=== PATIENT | male | born 1950 | race Caucasian/White ===

== ENCOUNTER 2020-07-06 11:17 | Emergency (ER) | payer OTHER ==
[2020-07-06] MEDS ORDERED: Sodium Chloride 0.9% 1,000 ML IV STA (11:57)
[2020-07-06] MEDS ORDERED: Sodium Chloride 0.9% 10 ML Syringe FLUSH PRN (11:57)
[2020-07-06] MEDS ORDERED: fentaNYL 100 MCG/2 ML SDV IVPUSH ONE (11:59)
--- NOTE | 2020-07-06 12:00 | EDM.PDOC ---
ED HPI GENERAL MEDICAL PROBLEM - General Chief Complaint: Abdominal Pain Stated Complaint: CHEST PAIN Time Seen by Provider: 07/06/20 11:53 Source of Information: Reports: Patient, Family, RN Notes Reviewed History Limitations: Reports: No Limitations - History of Present Illness INITIAL COMMENTS - FREE TEXT/NARRATIVE: 70-year-old gentleman presents emergency department a complaint of abdominal pain, he states he has had abdominal pain for about a week but it is progressively gotten worse over the last 24 hours no nausea vomiting states he has okay abdominal movements no fevers no shortness of breath - Related Data Allergies Allergy/AdvReac Type Severity Reaction Status Date / Time codeine AdvReac Nausea and Verified 07/06/20 12:05 Vomiting tetracycline AdvReac Hives Verified 07/06/20 11:31 Home Meds: Home Meds Aspirin [Halfprin] 81 mg PO DAILY 07/06/20 [History] Calcium Carbonate [Calcium] 600 mg PO DAILY 07/06/20 [History] Glucosamine [Glucosamine Sulfate] 500 mg PO DAILY 07/06/20 [History] Hydroxychloroquine [Plaquenil] 200 mg PO BID 07/06/20 [History] Levothyroxine Sodium [Synthroid] 75 mcg PO ACBREAKFAST 07/06/20 [History] Mirtazapine 30 mg PO DAILY 07/06/20 [History] Omeprazole 20 mg PO DAILY 07/06/20 [History] Oxybutynin Chloride 5 mg PO BID 07/06/20 [History] PARoxetine [Paxil] 20 mg PO DAILY 07/06/20 [History] Salsalate 1,500 mg PO BID 07/06/20 [History] Terazosin HCl [Terazosin] 5 mg PO DAILY 07/06/20 [History] predniSONE [Prednisone] 5 mg PO DAILY 07/06/20 [History] Past Medical History HEENT History: Reports: Impaired Vision Musculoskeletal History: Reports: RA Psychiatric History: Reports: Anxiety, Depression, Panic Attack, PTSD Endocrine/Metabolic History: Reports: Hypothyroidism, Obesity/BMI 30+ - Infectious Disease History Infectious Disease History: Reports: Chicken Pox, Hepatitis C, Measles, Mumps, Novel Coronavirus, Shingles - Past Surgical History Head Surgeries/Procedures: Reports: None HEENT Surgical History: Reports: None Respiratory Surgical History: Reports: None GI Surgical History: Reports: Appendectomy, Cholecystectomy Endocrine Surgical History: Reports: None Musculoskeletal Surgical History: Reports: Shoulder Replacement, Other (See Below) Other Musculoskeletal Surgeries/Procedures:: right shoulder, bilat wrists Dermatological Surgical History: Reports: None Social & Family History - Tobacco Use Tobacco Use Status *Q: Former Tobacco User Used Tobacco, but Quit: Yes Month/Year Tobacco Last Used: 1997 - Caffeine Use Caffeine Use: Reports: Coffee - Recreational Drug Use Recreational Drug Use: No ED ROS GENERAL - Review of Systems Review Of Systems: See Below Constitutional: Denies: Fever, Chills HEENT: Reports: No Symptoms Respiratory: Reports: No Symptoms Cardiovascular: Reports: No Symptoms GI/Abdominal: Reports: Abdominal Pain, Flatus. Denies: Constipation, Diarrhea, Nausea, Vomiting : Reports: No Symptoms ED EXAM, GI/ABD - Physical Exam Exam: See Below Exam Limited By: No Limitations General Appearance: Alert, WD/WN, No Apparent Distress Respiratory/Chest: No Respiratory Distress, Lungs Clear, Normal Breath Sounds, No Accessory Muscle Use, Chest Non-Tender Cardiovascular: Regular Rate, Rhythm, No Murmur GI/Abdominal Exam: Normal Bowel Sounds, Soft, Tender (Left upper quadrant) Course - Vital Signs Last Recorded V/S: Last Vital Signs Temp 99.2 F 07/06/20 11:41 Pulse 80 07/06/20 11:57 Resp 14 07/06/20 11:57 BP 144/81 H 07/06/20 11:57 Pulse Ox 99 07/06/20 11:57 - Orders/Labs/Meds Orders: Active Orders 24 hr Category Date Time Status Peripheral IV Care [RC] . DIRECTED Care 07/06/20 11:58 Active Sodium Chloride 0.9% [Saline Flush] Med 07/06/20 11:57 Active 10 ml FLUSH ASDIRECTED PRN Peripheral IV Insertion Adult [OM.PC] Urgent Oth 07/06/20 11:57 Ordered Medication Orders Sodium Chloride (Saline Flush) 10 ml FLUSH ASDIRECTED PRN PRN Reason: Keep Vein Open Labs: Laboratory Tests 07/06/20 07/06/20 07/06/20 Range/Units 12:08 12:08 12:08 WBC 5.1 (4.5-11.0) K/uL RBC 3.99 L (4.30-5.90) M/uL Hgb 13.1 (12.0-15.0) g/dL Hct 39.1 L (40.0-54.0) % MCV 98 (80-98) fL MCH 33 H (27-31) pg MCHC 34 (32-36) % Plt Count 135 L (150-400) K/uL Neut % (Auto) 83 H (36-66) % Lymph % (Auto) 9 L (24-44) % Butler % (Auto) 7 H (2-6) % Eos % (Auto) 0 L (2-4) % Baso % (Auto) 0 (0-1) % Sodium 140 (140-148) mmol/L Potassium 4.0 (3.6-5.2) mmol/L Chloride 104 (100-108) mmol/L Carbon Dioxide 27 (21-32) mmol/L Anion Gap 8.9 (5.0-14.0) mmol/L BUN 27 H (7-18) mg/dL Creatinine 1.4 H (0.8-1.3) mg/dL Est Cr Clr Drug Dosing 44.94 mL/min Estimated GFR (MDRD) 50 L (>60) Glucose 82 (74-106) mg/dL Lactic Acid 0.8 (0.4-2.0) mmol/L Calcium 8.9 (8.5-10.1) mg/dL Total Bilirubin 0.3 (0.2-1.0) mg/dL AST 41 H (15-37) U/L ALT 42 (12-78) U/L Alkaline Phosphatase 60 (46-116) U/L Troponin I < 0.017 (0.000-0.056) ng/mL Total Protein 7.2 (6.4-8.2) g/dL Albumin 3.6 (3.4-5.0) g/dL Globulin 3.6 H (2.3-3.5) g/dL Albumin/Globulin Ratio 1.0 L (1.2-2.2) Lipase 66 L (73-393) U/L Urine Color (YELLOW) Urine Appearance (CLEAR) Urine pH (5.0-8.0) Ur Specific [place] (1.008-1.030) Urine Protein (NEGATIVE) mg/dL Urine Glucose (UA) (NEGATIVE) mg/dL Urine Ketones (NEGATIVE) mg/dL Urine Occult Blood (NEGATIVE) Urine Nitrite (NEGATIVE) Urine Bilirubin (NEGATIVE) Urine Urobilinogen (0.2-1.0) EU/dL Ur Leukocyte Esterase (NEGATIVE) Urine RBC (0-5) Urine WBC (0-5) Ur Epithelial Cells Amorphous Sediment Urine Bacteria Urine Mucus 07/06/20 Range/Units 12:29 WBC (4.5-11.0) K/uL RBC (4.30-5.90) M/uL Hgb (12.0-15.0) g/dL Hct (40.0-54.0) % MCV (80-98) fL MCH (27-31) pg MCHC (32-36) % Plt Count (150-400) K/uL Neut % (Auto) (36-66) % Lymph % (Auto) (24-44) % Butler % (Auto) (2-6) % Eos % (Auto) (2-4) % Baso % (Auto) (0-1) % Sodium (140-148) mmol/L Potassium (3.6-5.2) mmol/L Chloride (100-108) mmol/L Carbon Dioxide (21-32) mmol/L Anion Gap (5.0-14.0) mmol/L BUN (7-18) mg/dL Creatinine (0.8-1.3) mg/dL Est Cr Clr Drug Dosing mL/min Estimated GFR (MDRD) (>60) Glucose (74-106) mg/dL Lactic Acid (0.4-2.0) mmol/L Calcium (8.5-10.1) mg/dL Total Bilirubin (0.2-1.0) mg/dL AST (15-37) U/L ALT (12-78) U/L Alkaline Phosphatase (46-116) U/L Troponin I (0.000-0.056) ng/mL Total Protein (6.4-8.2) g/dL Albumin (3.4-5.0) g/dL Globulin (2.3-3.5) g/dL Albumin/Globulin Ratio (1.2-2.2) Lipase (73-393) U/L Urine Color Yellow (YELLOW) Urine Appearance Clear (CLEAR) Urine pH 5.5 (5.0-8.0) Ur Specific [place] >= 1.030 (1.008-1.030) Urine Protein Negative (NEGATIVE) mg/dL Urine Glucose (UA) Negative (NEGATIVE) mg/dL Urine Ketones Negative (NEGATIVE) mg/dL Urine Occult Blood Negative (NEGATIVE) Urine Nitrite Negative (NEGATIVE) Urine Bilirubin Negative (NEGATIVE) Urine Urobilinogen 1.0 (0.2-1.0) EU/dL Ur Leukocyte Esterase Negative (NEGATIVE) Urine RBC Not seen (0-5) Urine WBC Not seen (0-5) Ur Epithelial Cells Not seen Amorphous Sediment Not seen Urine Bacteria Rare Urine Mucus Rare Meds: Medications Generic Name Dose Route Start Last Admin Trade Name Freq PRN Reason Stop Dose Admin Sodium Chloride 10 ml 07/06/20 11:57 Saline Flush FLUSH ASDIRECTED PRN Keep Vein Open Discontinued Medications Generic Name Dose Route Start Last Admin Trade Name Freq PRN Reason Stop Dose Admin Fentanyl 50 mcg 07/06/20 11:59 07/06/20 12:18 Sublimaze IVPUSH 07/06/20 12:00 50 mcg ONETIME ONE Administration Sodium Chloride 1,000 mls @ 999 mls/hr 07/06/20 11:57 07/06/20 12:21 Normal Saline IV 07/06/20 12:57 999 mls/hr .BOLUS STA Administration Sodium Chloride 80 mls @ 3.5 mls/sec 07/06/20 12:15 07/06/20 12:43 Normal Saline IV 07/06/20 12:16 3.5 mls/sec ASDIRECTED LOIS Administration Iopamidol 129 ml 07/06/20 12:01 07/06/20 12:42 Isovue-300 (61%) IV 07/06/20 12:02 129 ml ONETIME ONE Administration Sodium Chloride 10 ml 07/06/20 12:01 07/06/20 12:42 Saline Flush FLUSH 07/06/20 12:02 10 ml ONETIME ONE Administration Departure - Departure Time of Disposition: 13:20 Disposition: Home, Self-Care 01 Condition: Fair Clinical Impression: Abdominal pain Qualifiers: Abdominal location: left upper quadrant Qualified Code(s): R10.12 - Left upper quadrant pain - Discharge Information Instructions: Abdominal Pain, Adult, [id number] Referrals: Charity Ariza DIESEL TECHNICIAN [Primary Care Provider] - Forms: ED Department Discharge Additional Instructions: Continue to use ibuprofen for baseline pain control use hydrocodone for breakthrough pain, please followup with your primary care provider in 3-5 days if not better, please call return to the emergency department with worsening of symptoms. Sepsis Event Note (ED) - Evaluation Sepsis Screening Result: No Definite Risk - Focused Exam Vital Signs: Vital Signs Temp Pulse Resp BP Pulse Ox 07/06/20 11:57 80 14 144/81 H 99 07/06/20 11:41 99.2 F 81 18 142/81 H 100 07/06/20 11:35 99.2 F 81 18 142/81 H 100 - My Orders Last 24 Hours: My Active Orders 07/06/20 11:57 Sodium Chloride 0.9% [Saline Flush] 10 ml FLUSH ASDIRECTED PRN Peripheral IV Insertion Adult [OM.PC] Urgent 07/06/20 11:58 Peripheral IV Care [RC] . DIRECTED - Assessment/Plan Last 24 Hours: My Active Orders 07/06/20 11:57 Sodium Chloride 0.9% [Saline Flush] 10 ml FLUSH ASDIRECTED PRN Peripheral IV Insertion Adult [OM.PC] Urgent 07/06/20 11:58 Peripheral IV Care [RC] . DIRECTED Plan: Assessment Acuity = acute Site and laterality = abdominal pain Etiology = unknown Manifestations = none Location of injury = Home Lab values = CBC, CMP, urinalysis, CT scan showed no acute process lactic acid within normal limits Plan I did review CT scan lab results with him prescription written for hydrocodone 5/325 1 tab p.o. 3 times daily as needed total #10 provided pain control and follow-up with his primary care next week for further evaluation This note was dictated using [employer] voice recognition software please call with any questions on syntax or grammar.
[2020-07-06] MEDS ORDERED: Iopamidol 612 MG/ML 500 ML Multipack Bottle IV ONE (12:01)
[2020-07-06] MEDS ORDERED: Sodium Chloride 0.9% 10 ML Syringe FLUSH ONE (12:01)
[2020-07-06] MEDS ORDERED: Sodium Chloride 0.9% 80 ML IV SCH (12:15)
--- NOTE | 2020-07-06 13:10 | CRLCT ---
Indication: Left upper quadrant pain. Technique: Multiple contiguous axial images were obtained from the lung bases since this pubis after the intravenous administration of 129 milliliters Isovue 300. Please note that all CT scans at this facility use dose modulation, iterative reconstruction, and/or weight-based dosing when appropriate to reduce radiation dose to as low as reasonably achievable. Comparison: None Findings: The lung bases are clear. The heart is normal in size. No pericardial effusions identified. Postsurgical changes of cholecystectomy are identified. A right renal cyst is identified. No intrahepatic biliary ductal dilatation is identified. The spleen, liver, pancreas, adrenals, and kidneys are normal. No intrahepatic biliary ductal dilatation is identified. No hydronephrosis is identified. In the pelvis, the urinary bladder is normal. The prostate gland is normal. Prostatic calcifications are identified. The small and large bowel are normal in caliber. No free air or free fluid is identified within the abdomen or pelvis. The aorta is normal in caliber. Degenerative changes of the spine are identified. No lytic or blastic lesions are identified. Impression: Essentially normal CT scan of the abdomen and pelvis. No findings to account for the patient`s left upper quadrant pain. Right renal cyst. Postsurgical changes of cholecystectomy. Please note that all CT scans at this facility use dose modulation, iterative reconstruction, and/or weight-based dosing when appropriate to reduce radiation dose to as low as reasonably achievable. Dictated by Kanika Gil MD @ Jul 06 2020 1:04PM Signed by Dr. Kanika Gil @ Jul 06 2020 1:08PM
== END 2020-07-06 13:31 | disposition home or self-care (01) ==
LOC: JP.ED 11:17
DX: R10.12 Left upper quadrant pain (principal); M06.9 Rheumatoid arthritis, unspecified; E03.9 Hypothyroidism, unspecified; E66.9 Obesity, unspecified; Z88.5 Allergy status to narcotic agent; Z88.1 Allergy status to other antibiotic agents; Z79.82 Long term (current) use of aspirin; Z79.899 Other long term (current) drug therapy; Z87.891 Personal history of nicotine dependence
CPT/HCPCS: 36415; 74177; 80053; 81001; 83605; 83690; 84484; 85025; 96374; 99284; J3010; J7030; Q9967; 99283